=== PATIENT | male | born 1970 | race Caucasian/White ===

== ENCOUNTER 2017-09-16 15:49 | Emergency (ER) | payer SELFPAY | END 2017-09-16 19:06 | disposition home or self-care (01) | LOC: D.ER 15:49 | DX: S80.861A Insect bite (nonvenomous), right lower leg, initial encounter (principal); W57.XXXA Bitten or stung by nonvenomous insect and other nonvenomous arthropods, initial encounter; Y93.89 Activity, other specified; Y92.029 Unspecified place in mobile home as the place of occurrence of the external cause; F17.200 Nicotine dependence, unspecified, uncomplicated ==

== ENCOUNTER 2017-09-22 10:58 | Emergency (ER) | payer SELFPAY | END 2017-09-22 12:04 | disposition home or self-care (01) | LOC: D.ER 10:58 | DX: M79.661 Pain in right lower leg (principal) ==

== ENCOUNTER 2017-11-10 09:06 | Emergency (ER) | payer SELFPAY | END 2017-11-10 11:19 | disposition home or self-care (01) | LOC: D.ER 09:06 | DX: K08.89 Other specified disorders of teeth and supporting structures (principal); R68.84 Jaw pain; R22.9 Localized swelling, mass and lump, unspecified; F17.200 Nicotine dependence, unspecified, uncomplicated ==

== ENCOUNTER 2018-01-05 14:22 | Emergency (ER) | payer SELFPAY | END 2018-01-05 16:57 | disposition left against medical advice (07) | LOC: D.ER 14:22 | DX: M25.562 Pain in left knee (principal) ==

== ENCOUNTER 2018-07-28 07:50 | Day surgery (SDC) | payer MEDICAID ==
[~2018-07-28] VITALS: Ht 170.2 cm; Wt 83.0 kg
[2018-07-28] MEDS ORDERED: PRILOSEC2.5 MG PO (08:14)
[2018-07-28 08:26] VITALS: BP 119/73; Ht 170.2 cm; Wt 83.0 kg
[2018-07-28] MEDS ORDERED: HYDROCODON-ACE1 EAC7 PO (10:15)
== END 2018-07-28 13:20 | disposition home or self-care (01) ==
LOC: D.OPS 07:50 → D.PAN 10:00 → D.OPS 10:00
DX: K80.10 Calculus of gallbladder with chronic cholecystitis without obstruction (principal); F17.200 Nicotine dependence, unspecified, uncomplicated; Z01.812 Encounter for preprocedural laboratory examination

== ENCOUNTER 2018-07-31 04:55 | Emergency (ER) | payer MEDICAID ==
[~2018-07-31] VITALS: Ht 170.2 cm; Wt 84.1 kg
[~2018-07-31 04:55] MED LIST: HYDROCODON-ACE1 EAC7 PO; PRILOSEC2.5 MG PO
[2018-07-31 04:57] VITALS: Ht 170.2 cm; Wt 84.1 kg
[2018-07-31] MEDS ORDERED: ULTRAM50 MG (04:59)
[2018-07-31 07:35] LABS: BASOPHILS 0.2 % (0-2); EOSINOPHILS 0.5 % (0-7); HEMATOCRIT 49.7 % (42.0-54.0); HEMOGLOBIN 17.8 g/dL (13.5-17.5); IMMATURE GRANULOCYTES 0.2 % (0-5); MCH 31.6 pg (26.0-34.0); MCHC 35.8 g/dL (31.0-37.0); MCV 88.3 fL (80.0-100.0); MEAN PLATELET VOLUME 9.6 fL (7.4-10.4); MONOCYTES 5.1 % (2-11); PLATELET COUNT 183 10x3/uL (130-400); RBC 5.63 10x6/uL (4.20-6.10); RDW 14.7 % (11.5-14.5); WBC 16.8 10x3/uL (4.8-10.8)
[2018-07-31 07:49] LABS: ALBUMIN 3.5 g/dL (3.4-5.0); ALKALINE PHOSPHATASE 77 U/L (46-116); ALT (SGPT) 59 U/L (10-68); BILIRUBIN - TOTAL 0.81 mg/dL (0.2-1.3); CALC OSMOLALITY 274 mosm/kg (275-300); CALCIUM 8.8 mg/dL (8.5-10.1); CHLORIDE - SERUM 103 mmol/L (98-107); CREATININE - SERUM 0.7 mg/dL (0.6-1.3); GLUCOSE 102 mg/dL (74-106); LIPASE 114 U/L (73-393); POTASSIUM - SERUM 5.2 mmol/L (3.5-5.1); PROTEIN - SERUM 7.2 g/dL (6.4-8.2); SODIUM 138 mmol/L (136-145); UREA NITROGEN 11 mg/dL (7-18); eGFR NON AFRICAN AMERICAN > 90 mL/min (90-120)
[2018-07-31 09:41] VITALS: BP 142/86
[2018-08-01] MEDS ORDERED: HYDROCODON-ACE1 EAC7 PO (18:26)
== END 2018-07-31 09:42 | disposition home or self-care (01) ==
LOC: D.ER 04:55
PROVIDERS: Family Medicine
DX: G89.18 Other acute postprocedural pain (principal); R10.13 Epigastric pain; K21.9 Gastro-esophageal reflux disease without esophagitis; F17.200 Nicotine dependence, unspecified, uncomplicated

== ENCOUNTER 2018-08-01 11:59 | Inpatient (IN) | payer MEDICAID ==
[~2018-08-01] VITALS: Ht 170.2 cm; Wt 84.1 kg
--- NOTE | ~2018-08-01 | DS ---
PATIENT:RINA REYES :66 MEDICAL RECORD: [id number] DISCHARGE SUMMARY ADMISSION DATE: 08/01/18 DISCHARGE DATE: 08/03/18 DATE OF ADMISSION: 08/01/2018 DATE OF DISCHARGE: 08/03/2018 ADMISSION DIAGNOSIS: Abdominal pain. HISTORY OF PRESENT ILLNESS: A 48-year-old male who presented to the ER multiple times after a laparoscopic cholecystectomy. Workup did not show any acute abnormalities. He represented to the Emergency Room with continued complaints of abdominal pain and need for increased abdominal pain control. He was admitted and a PIPIDA scan was performed after a negative CT scan, which showed no evidence of leak. The patient did have some fever in the Emergency Room. He was treated with IV antibiotics and IV narcotics. Remainder of the patient's hospital course was without incident. As his pain improved, his diet was advanced. He was started on a bowel regimen. At the time of discharge, he was tolerating a regular diet. His pain was well controlled on oral pain medicines. DIET: As tolerated. DISCHARGE ACTIVITY: As tolerated, no restrictions. WOUND CARE: The patient may shower. FOLLOWUP: Follow up with Dr. Olivia in 2 weeks. DISCHARGE MEDICATIONS: Please see the electronic medical record to import list of discharge medications. TRANSINT:[id number] Voice Confirmation ID: [id number] DOCUMENT ID: [id number] JACQUELINE OLIVIA MD at 1255 CC: [id number] DICTATION DATE: 08/18/18 1647 ACCOUNTING TEACHER: 08/18/18 1718 DIS IN 08/03/18 [place] [address]
[~2018-08-01 11:59] MED LIST changes: +ULTRAM50 MG
[2018-08-01 12:42] LABS: BASOPHILS 0.1 % (0-2); EOSINOPHILS 0.2 % (0-7); HEMATOCRIT 45.6 % (42.0-54.0); HEMOGLOBIN 16.5 g/dL (13.5-17.5); IMMATURE GRANULOCYTES 0.4 % (0-5); LYMPHOCYTES 8.9 % (15-50); MCH 31.6 pg (26.0-34.0); MCHC 36.2 g/dL (31.0-37.0); MCV 87.4 fL (80.0-100.0); MEAN PLATELET VOLUME 9.7 fL (7.4-10.4); MONOCYTES 4.4 % (2-11); PLATELET COUNT 217 10x3/uL (130-400); RBC 5.22 10x6/uL (4.20-6.10); RDW 14.2 % (11.5-14.5); WBC 19.4 10x3/uL (4.8-10.8)
[2018-08-01 12:55] LABS: ALBUMIN 3.8 g/dL (3.4-5.0); ALKALINE PHOSPHATASE 86 U/L (46-116); ALT (SGPT) 48 U/L (10-68); BILIRUBIN - TOTAL 1.18 mg/dL (0.2-1.3); CALC OSMOLALITY 267 mosm/kg (275-300); CHLORIDE - SERUM 99 mmol/L (98-107); CREATININE - SERUM 0.8 mg/dL (0.6-1.3); GLUCOSE 125 mg/dL (74-106); PROTEIN - SERUM 7.5 g/dL (6.4-8.2); SODIUM 134 mmol/L (136-145); UREA NITROGEN 10 mg/dL (7-18); eGFR NON AFRICAN AMERICAN > 90 mL/min (90-120)
[2018-08-01 13:02] LABS: CARBON DIOXIDE 27.4 mmol/L (21.0-32.0)
[2018-08-01 13:11] LABS: AMYLASE - SERUM 25 U/L (25-115); CKMB 0.8 U/L (0.0-3.6); CREATINE KINASE 62 UL (21-232); LIPASE 81 U/L (73-393)
[2018-08-01 13:13] LABS: TROPONIN-I < 0.017 ng/mL (0.000-0.060)
[2018-08-01 13:39] LABS: APPEARANCE HAZY (CLEAR); BILIRUBIN 2+ (NEGATIVE); COLOR DK YELLOW (YELLOW); GLUCOSE NEGATIVE (NEGATIVE); KETONE MODERATE mg/dL (NEGATIVE); NITRITE NEGATIVE (NEGATIVE); PROTEIN NEGATIVE (NEGATIVE); UROBILINOGEN NORMAL (NORMAL)
[2018-08-01 13:40] LABS: AMORPHOUS SEDIMENT >1+ /lpf (NONE SEEN); BACTERIA MODERATE /hpf (NONE SEEN); EPITHELIAL CELLS 0-5 /hpf (0-5); MUCUS >1+ /lpf (NONE SEEN); RED CELLS - URINE 0-5 /hpf (0-5); WHITE CELLS - URINE 0-5 /hpf (0-5)
[2018-08-01 14:39] VITALS: BP 168/104
[2018-08-01 15:22] VITALS: BP 158/77
[2018-08-01 15:43] VITALS: BP 158/77
[2018-08-01] MEDS ORDERED: HYDROCODON-ACE1 EAC7 PO (18:26)
[2018-08-01 18:43] VITALS: BMI 29.0
[2018-08-01 20:33] VITALS: BP 168/93
[2018-08-01 20:39] VITALS: BP 144/92
[2018-08-01 21:02] VITALS: Ht 170.2 cm; Wt 84.1 kg
[2018-08-02 03:08] VITALS: BP 126/87
[2018-08-02 04:42] LABS: BASOPHILS 0.1 % (0-2); EOSINOPHILS 0.1 % (0-7); HEMATOCRIT 42.8 % (42.0-54.0); HEMOGLOBIN 15.2 g/dL (13.5-17.5); IMMATURE GRANULOCYTES 0.3 % (0-5); LYMPHOCYTES 10.5 % (15-50); MCH 30.8 pg (26.0-34.0); MCHC 35.5 g/dL (31.0-37.0); MCV 86.8 fL (80.0-100.0); MEAN PLATELET VOLUME 9.6 fL (7.4-10.4); MONOCYTES 8.2 % (2-11); NEUTROPHILS 80.8 % (40-80); PLATELET COUNT 195 10x3/uL (130-400); RBC 4.93 10x6/uL (4.20-6.10); RDW 14.4 % (11.5-14.5)
[2018-08-02 04:58] LABS: ALKALINE PHOSPHATASE 82 U/L (46-116); ALT (SGPT) 39 U/L (10-68); BILIRUBIN - TOTAL 1.77 mg/dL (0.2-1.3); CALC OSMOLALITY 267 mosm/kg (275-300); CALCIUM 8.6 mg/dL (8.5-10.1); CHLORIDE - SERUM 99 mmol/L (98-107); CREATININE - SERUM 0.7 mg/dL (0.6-1.3); GLUCOSE 94 mg/dL (74-106); MAGNESIUM - SERUM 1.7 mg/dL (1.8-2.4); PROTEIN - SERUM 6.7 g/dL (6.4-8.2); SODIUM 135 mmol/L (136-145); eGFR NON AFRICAN AMERICAN > 90 mL/min (90-120)
[2018-08-02 04:59] LABS: UREA NITROGEN 6 mg/dL (7-18)
[2018-08-02 09:04] VITALS: BP 129/82
[2018-08-02 17:01] VITALS: BP 106/80
[2018-08-02 20:00] VITALS: BP 1113/79
[2018-08-03 03:38] VITALS: BP 119/62
[2018-08-03 06:34] LABS: BASOPHILS 0.4 % (0-2); EOSINOPHILS 0.9 % (0-7); HEMATOCRIT 41.7 % (42.0-54.0); HEMOGLOBIN 14.8 g/dL (13.5-17.5); IMMATURE GRANULOCYTES 0.3 % (0-5); LYMPHOCYTES 12.5 % (15-50); MCHC 35.5 g/dL (31.0-37.0); MCV 87.2 fL (80.0-100.0); MEAN PLATELET VOLUME 9.5 fL (7.4-10.4); MONOCYTES 6.1 % (2-11); NEUTROPHILS 79.8 % (40-80); PLATELET COUNT 187 10x3/uL (130-400); RBC 4.78 10x6/uL (4.20-6.10); RDW 14.2 % (11.5-14.5); WBC 11.7 10x3/uL (4.8-10.8)
[2018-08-03 06:46] LABS: CALC OSMOLALITY 276 mosm/kg (275-300); CALCIUM 8.4 mg/dL (8.5-10.1); CARBON DIOXIDE 26.4 mmol/L (21.0-32.0); CHLORIDE - SERUM 102 mmol/L (98-107); CREATININE - SERUM 0.8 mg/dL (0.6-1.3); GLUCOSE 90 mg/dL (74-106); MAGNESIUM - SERUM 2.1 mg/dL (1.8-2.4); POTASSIUM - SERUM 3.9 mmol/L (3.5-5.1); SODIUM 139 mmol/L (136-145); UREA NITROGEN 10 mg/dL (7-18); eGFR NON AFRICAN AMERICAN > 90 mL/min (90-120)
[2018-08-03 09:49] VITALS: BP 133/83
== END 2018-08-03 10:13 | disposition home or self-care (01) | DRG 948 ==
LOC: D.ER 11:59 → D.EDHOLD 16:11 → OBSVTIME 16:12 → D.MS 16:30
PROVIDERS: Emergency Medicine; Surgery
DX: G89.18 Other acute postprocedural pain (principal); F17.210 Nicotine dependence, cigarettes, uncomplicated; K21.9 Gastro-esophageal reflux disease without esophagitis; F41.9 Anxiety disorder, unspecified; R50.9 Fever, unspecified